=== PATIENT | female | born 1955 | race Caucasian/White ===

== ENCOUNTER 2017-01-09 16:30 | Inpatient (IN) | payer OTHER ==
--- NOTE | ~2017-01-09 | HP ---
Unit #: [id number] #: [id number] Patient: ARDEN LIAO [id number] [address] [place], [place] [address] [id number] MR#: [id number] NAME: ARDEN LIAO ROOM: 89912 Age: 61 Sex: F Admission Date: 01/09/2017 : 1955 Attending Physician: Ivonne Goodwin M.D. Primary Care Physician: No Primary Care Physician HISTORY AND PHYSICAL CHIEF COMPLAINT Shortness of breath, cough, wheezing. DISCUSSION This is a 61-year-old female who has a past history of diabetes, dyslipidemia, anxiety, depression, history of anemia, history of brain aneurysm requiring coiling in 1996, history of herpes zoster with chronic anterior chest wall pain from September 2016, rheumatoid arthritis being on steroids at home and on oxygen. She presented to the emergency room with the chief complaint of having shortness of breath, cough, wheezing. She said her symptoms started one week ago, which got progressively worse. She was unable to breathe. She came to the ER and was found to be in COPD. On blood work she was found to have mildly increased troponin at 0.06, 0.09, and D-dimer was elevated at 61. PE protocol CT scan is negative. Eventually she has been admitted. PAST MEDICAL HISTORY 1. History of COPD, oxygen dependent. 2. History of diabetes. 3. Dyslipidemia. 4. Anxiety and depression. 5. Rheumatoid arthritis on prednisone. 6. History of GERD. 7. History of herpes zoster since September 2016 with anterior chest wall pain. 8. History of brain aneurysm requiring clipping in 1996. PAST SURGICAL HISTORY 1. History of brain aneurysm requiring clipping. 2. ORIF of right forearm. 3. Tubal ligation. SOCIAL HISTORY She used to smoke 1 1/2 packs daily for her whole life. She quit 3 years ago. She denies alcohol. She says she used to drink socially. She is not drinking anymore. Denies other illicit drug use. FAMILY HISTORY Mother - heart attack and had CABG. MEDICATIONS FROM HOME 1. Fosamax 70 mg weekly. 2. Combivent p.r.n. 3. Januvia 100 mg daily. Unit #: [id number] #: [id number] Patient: ARDEN LIAO 4. Lantus 25 units in the morning and 20 in the evening. 5. Aspirin 81 mg daily. 6. Hydrocodone 7.5/325 mg q.6 hours p.r.n. 7. Amitriptyline 25 mg at bedtime. 8. Atorvastatin 10 mg daily. 9. Iron 1 tablet daily. 10. Prednisone 10 mg daily. 11. Zoloft 100 mg daily. 12. Nexium 40 mg daily. 13. Amaryl 4 mg daily. 14. Folic acid 1 mg daily. 15. Leflunomide 20 mg daily. 16. Gabapentin 300 mg t.i.d. REVIEW OF SYSTEMS CONSTITUTIONAL: She denies fever or chills. CARDIOVASCULAR: She complained of chest pain with deep breaths and also anterior chest wall, which she is attributing to her herpes zoster. PULMONARY: She has a cough, wheezing, shortness of breath. Cough is mainly nonproductive. NEUROLOGIC: No headache. No dizziness. ENDOCRINE: Denies any polyuria, polydipsia. SKIN: She has chronic rash to the anterior chest wall and posterior side of abdomen. PHYSICAL EXAMINATION GENERAL: Middle-aged female lying in the bed comfortably. Currently not in any distress. e is alert, awake, oriented x3. CURRENT VITALS: Temperature 99.2, heart rate 124, respiratory rate 30, blood pressure 117/77, oxygen saturation 98% on 4 liters. HEENT: Pupils are equal and reactive to light and accommodation. Head is normocephalic and atraumatic. NECK: Neck is supple. No JVD. HEART: S1, S2. Regular rhythm. Tachycardia. LUNGS: Poor air entry with bilateral rhonchi, wheezing. ABDOMEN: Abdomen is soft, nontender, nondistended. Bowel sounds are positive. EXTREMITIES: Inspection is normal. No cyanosis. No clubbing. No edema. NEUROLOGIC: No focal neurologic deficits. SKIN: Rash is positive to anterior chest wall. DIAGNOSTIC STUDIES LABORATORY WORKUP: Troponin is 0.09. D-dimer is 861. Troponin is 0.06. Sodium is 136, potassium 4.2, chloride 99, glucose 262, BUN 15, creatinine 0.9, AST 30, ALT 27, albumin 3.6. White count 8, hemoglobin 11, hematocrit 36, platelets 67. Flu negative. ABG - pH 7.4, CO2 41, pO2 72. IMAGING: Chest x-ray negative. CT chest PE protocol negative for pulmonary embolism. ASSESSMENT AND PLAN 1. Acute exacerbation of COPD, oxygen dependent. Start the patient on DuoNeb, IV Levaquin, Solu-Medrol 2. Thrombocytopenia. She is a rather poor historian, but she declines history of thrombocytopenia. Will repeat again in the morning. 3. History of anemia. 4. Increased troponin. She attributing chest pain to her herpes zoster, Unit #: [id number] #: [id number] Patient: ARDEN LIAO but I will repeat cardiac enzymes. Mildly elevated. Ask cardiology to evaluate. 5. Abnormal D-dimer. Negative CT chest per PE protocol. 6. Diabetes. 7. Dyslipidemia. 8. History of anxiety and depression. 9. History of rheumatoid arthritis. 10. GERD. 11. Herpes zoster. 12. History of brain aneurysm requiring clipping in the past. 13. DVT prophylaxis. Will place the patient on SCDs. Dictated by Doc Crabtree M.D. Caity TD: 01/10/2017 07:47 JOB #: [id number] HISTORY AND PHYSICAL X X HISTORY AND PHYSICAL
--- NOTE | ~2017-01-09 | EKG ---
PATIENT: ARDEN LIAO UNIT #: [id number] Ventricular Rate: 113 BPM Atrial Rate: 113 BPM P-R Interval: 154 ms QRS Duration: 74 ms Q-T Interval: 340 ms QTC Calculation(Bezet): 466 ms P [place]: 87 degrees Calculated R [place]: 78 degrees Calculated T [place]: 5 degrees Diagnosis Line: Sinus tachycardia Diagnosis Line: ST and T wave abnormality, consider inferior Diagnosis Line: ischemia Diagnosis Line: Abnormal ECG Diagnosis Line: When compared with ECG of 09-JAN-2017 16:43, Diagnosis Line: (unconfirmed) Diagnosis Line: T wave inversion now evident in Inferior leads Diagnosis Line: Confirmed by OCTAVIA SCHAFFER MD ([id number]) on 01/10/2017 Diagnosis Line: 6:05:31 PM INTERPRETING MD: SARBJIT LERMA
--- NOTE | ~2017-01-09 | CO ---
Unit #: [id number] #: [id number] Patient: ARDEN LIAO [id number] [address] [place], [place] [address] [id number] I MR#: [id number] NAME: ARDEN LIAO ROOM: 78155 Age: 61 Sex: F Admission Date: 01/09/2017 : 1955 Attending Physician: Ivonne Goodwin M.D. Primary Care Physician: Primary Care Physician No Consultation Date: 01/10/2017 CONSULTATION REPORT REASON FOR CONSULTATION Elevated serum troponin levels. HISTORY OF PRESENT ILLNESS Ms. White is a 61-year-old white female, who came to the emergency room complaining of cough, shortness of breath, and probable low-grade fever over the last 3 to 4 days. Shortness of breath got so severe that she could not even get out of her bed and was found to be in acute respiratory distress by the time she arrived in the emergency room. The patient is known to have COPD from 80 pack years of cigarette smoking, that she stopped three years ago. Over the last few weeks, the patient has not been able to clean her house, walk from one room to the other without getting short of breath. She denies any contact with persons with influenza. She has suffered from herpes zoster in September 2016 and since then has complained of chest pain localized to the left upper and left lower anterior chest from postherpetic neuralgia. She denies any heaviness, tightness, or pressure-like sensation to suggest angina pectoris, has not had any shoulder or jaw pain, denies any elbow discomfort. She sleeps on one pillow, denies any nocturnal dyspnea, and has occasional ankle edema. There is no history of previous AL, transient ischemic attacks. In 1996, she was diagnosed to have an intracranial bleed secondary to a cerebral aneurysm and was taken to [facility], where she underwent clipping of the aneurysm, that did not leave any residual effects. PAST MEDICAL HISTORY Significant for; 1. Insulin-dependent diabetes mellitus, hypertension, and hyperlipidemia. 2. Anxiety. 3. Right forearm fracture that required open reduction. SOCIAL AND PERSONAL HISTORY She stopped smoking 3 years ago after total smoking history of close to 70 to 80 pack years. She does not abuse alcohol. FAMILY HISTORY Her mother at the age of 72 suffered from coronary artery disease and underwent three-vessel bypass graft surgery. No other member of the family has ischemic heart disease. PHYSICAL EXAMINATION GENERAL: Reveals a middle-aged female, looks older than her stated age, is dyspneic at rest with head end elevated to 30 degrees. Audible Unit #: [id number] #: [id number] Patient: ARDEN LIAO wheezing is noted. VITAL SIGNS: Heart rate is 110 beats per minute. NECK: There is no jugular venous distention. Carotid upstrokes are normal without any bruits. EXTREMITIES: There is no ankle edema. Pedal pulses are absent. CARDIAC: Showed apical impulses palpable in the fifth intercostal space and midclavicular line and is normal, both heart sounds are normal, no rubs or clicks are audible, there is no murmur. CHEST: Normal to palpation and percussion, there are diffuse rhonchi scattered in both lung ruvalcaba with markedly diminished breath sounds in both lung ruvalcaba. ABDOMEN: Shows soft and nontender anterior abdominal wall. There are no masses or organomegaly. RECTAL: Not done. FREIGHT ELEVATOR OPERATOR: Within normal limits. DIAGNOSTIC STUDIES CARDIOVASCULAR STUDIES: EKG done at that time of admission shows normal sinus rhythm, nonspecific ST-segment changes, no ischemic abnormalities are noted with poor R-wave progression in V1, V2, most likely related to COPD. LABORATORY RESULTS: Cardiac enzymes at the time of admission were normal. Early this morning, troponin elevation to 0.34 ng/dL is noted. Repeat electrocardiogram is awaited. Hemoglobin is 10.9, hematocrit 34.2 with a platelet count of 72,000, etiology of which is uncertain. White count is only 5200. IMAGING STUDIES: Chest x-ray shows normal size heart, increased interstitial lung markings secondary to COPD, and probable pulmonary fibrosis. DIAGNOSES 1. Acute bronchitis. 2. Severe chronic obstructive pulmonary disease. 3. Thrombocytopenia and anemia, etiology undetermined. 4. Mild elevation of serum troponin levels, cannot rule out acute coronary event though unlikely. 5. Insulin-dependent diabetes mellitus. 6. Hyperlipidemia. 7. Hypertension. 8. Status post coil clipping of intracerebral aneurysm in 1996. 9. Anxiety. PLAN 1. The patient will be continued on antibiotics and steroids already ordered along with nebulizer treatments. 2. From a cardiac standpoint, troponin levels will be monitored. It is unlikely that this represents an acute myocardial infarction, elevated serum troponin may be secondary to increased planned demand equation. In view of significant thrombocytopenia, I will withhold dual antiplatelet therapy or full anticoagulation dose with heparin unless troponins and EKGs show significant abnormalities. I will follow the patient with you. Thank you very much for associating us in the care of Ms. White. Dictated by... Aureliano Carnes M.D. Unit #: [id number] #: [id number] Patient: ARDEN LIAO LUC/anibal TD: 01/10/2017 12:08 JOB #: [id number] CONSULTATION REPORT X Aureliano Carnes MD X CONSULTATION REPORT
--- NOTE | ~2017-01-09 | DS ---
Unit #: [id number] #: [id number] Patient: ARDEN LIAO [id number] [address] [place], [place] [address] [id number] I MR#: [id number] NAME: ARDEN LIAO ROOM: 309 Age: 61 Sex: F Admission Date: 01/09/2017 : 1955 Discharge Date: 01/13/2017 Attending Physician: Christopher Connelly M.D. Primary Care Physician: No Primary Care Physician DISCHARGE SUMMARY DISCHARGE DIAGNOSES 1. Acute chronic obstructive pulmonary disease exacerbation. Will be discharged on tapered course of steroid back down to her prednisone 10 mg orally daily. 2. Non-ST elevation myocardial infarction versus elevated troponin non-ST elevation myocardial infarction versus cardiac demand from acute chronic obstructive pulmonary disease exacerbation. Troponin peaked at 0.39. 3. Thrombocytopenia. 4. Chronic anemia. Stable hemoglobin and hematocrit. No overt signs of bleeding. 5. Elevated D-dimer. No pulmonary embolism. Likely due to the patient's longstanding chronic obstructive pulmonary disease. 6. Uncontrolled type 2 diabetes. A1C is 9.6. 7. Dyslipidemia, on statin therapy. 8. History of anxiety and depression. No homicidal or suicidal ideation. 9. History of rheumatoid arthritis, on chronic steroid, prednisone 10 mg orally daily. 10. Gastroesophageal reflux disease, on proton pump inhibitor. 11. Herpes zoster, mainly over the anterior chest, originally diagnosed in September. Has completed a course of antiviral. 12. Remote history of brain aneurysm status post clipping, stable. 13. Acute tracheobronchitis. 14. Depressed thyroid-stimulating hormone with normal free T3 and T4. Could be due to acute illness. Recommend followup with repeat thyroid-stimulating hormone and free T4 within 4-[address] 1[address]. Allen of cardiology. 2. Dr. Emilie Meraz of pulmonary. PROCEDURES None. DIAGNOSTIC STUDIES IMAGING: Chest CT on 01/09/17. Findings - Redemonstrated findings of COPD and old granulomatous disease. No infiltrate, effusion, pneumothorax or suspicious nodule. No interval change. No acute findings. CT angiogram of chest on 01/09/17. Impression - No CT evidence of pulmonary embolus or aortic dissection. No active disease. LABS: On the day of discharge the patient's labs include BMP with glucose of 82, BUN 33, creatinine 0.8, sodium 144, potassium 4.6, chloride 104, Unit #: [id number] #: [id number] Patient: ARDEN LIAO CO2 31, calcium 8.6, magnesium 2.2, total protein 6.2, albumin 3.1, total bilirubin is 0.6. CBC with WBC of 8.7, RBC 4.9, hemoglobin 12.5, hematocrit 39.4, MCV 80.5, MCH 25.5, MCHC 31.7, RDW 14.8, platelets 116, MPV 8.3. HOSPITAL COURSE The patient is a 61-year-old female with past medical history of type 2 diabetes, dyslipidemia, anxiety, depression, history of anemia, history of brain aneurysm requiring coiling in 1996, history of herpes zoster with chronic anterior chest wall pain and crusting since September 2016, rheumatoid arthritis - chronic and on steroid prednisone 10 mg orally daily, chronically on oxygen. She presented to the emergency department with complaints of shortness of breath, cough and wheezing. She stated that her symptoms started one week ago, which had gotten progressively worse. She was unable to breathe. She came to the emergency department and was found to have COPD exacerbation. Blood work revealed that she had mildly increased troponin of 0.06 and 0.09. D-dimer was elevated at 61. CT scan of the chest per PE protocol was negative. She was admitted for acute COPD exacerbation and treatment for acute tracheobronchitis. As far as her elevated troponin, it had peaked at 0.39. Cardiology was consulted who felt it was best that the patient did have her elevated troponin assessed, as this may be elevated troponin due to NSTEMI versus detectable due to acute COPD exacerbation. Due to the patient's chronic COPD, it was worrisome that the patient would not be able to tolerate anesthesia. Therefore, at this time, deferring left heart catheterization and will defer this to a later date once her COPD is more stable. With regard to her COPD exacerbation, she chronically at baseline is dyspneic with exertion, and at this time, with much usage of IV steroid, she feels that she is back to her normal baseline and she is back to using oxygen via nasal cannula 2 liters a minute. Her last oxygen saturation assessment reveals it to be 98% on 2 liters. Therefore, she is back to her chronic endstage COPD. Due to her poor COPD overall and questionable stability, PT/OT was asked to see the patient in consultation. The patient actually did fairly well. She was able to ambulate for 200 feet with a rolling walker on her chronic oxygen usage. There was some gait instability, and physical therapy did recommend subacute rehab prior to home for stability. The patient was offered this, but she tells me over and over again that she does not want to go to rehab and she would like to go home where she has her daughter and her boyfriend to help. I have offered the patient the possibility of doing outpatient physical and occupational therapy rehab at our wellness center given her acute COPD exacerbation and our desire to improve her lung function in preparation for left heart cath with Dr. Allen, but she tells me that this cannot be arranged as she does not have a ride and she does not drive. Her daughter and her boyfriend work all day and would not be able to help with this. Therefore, I am setting up [facility] home health to get physical and occupational therapy out there. DISCHARGE CONDITION Stable. DISCHARGE DISPOSITION To home with her daughter and her boyfriend. DISCHARGE DIET Unit #: [id number] #: [id number] Patient: ARDEN LIAO Heart healthy with [place] recommended consistent carb diet. ACTIVITIES Resume activities as prior to hospitalization with ambulating every day as tolerated. DISCHARGE MEDICATIONS 1. Combivent inhaled q.i.d. as needed for shortness of breath. 2. Prednisone. I will be tapering her prednisone from 40 mg orally for 3 days, then 30 mg orally for 3 days, then 20 mg orally for 3 days, then back to her 10 mg orally chronically. 3. Gabapentin 300 mg orally t.i.d. 4. Amitriptyline 25 mg orally at bedtime. 5. Sertraline 100 mg orally daily. 6. Januvia 100 mg orally daily. 7. Metoprolol XL 25 mg orally daily. 8. Guaifenesin 200 mg orally t.i.d. as needed for cough. 9. Atorvastatin 40 mg orally at bedtime. 10. Patient was using Lantus and currently will be discharging her with Lantus 28 units subcutaneously b.i.d. 11. NovoLog 5 units with meals plus low-dose sliding scale with meals and prior to bedtime. 12. Iron supplement 1 tablet orally daily. 13. Fosamax 70 mg orally weekly. 14. Leflunomide 20 mg orally daily. 15. Aspirin 81 mg orally daily. 16. Hydrocodone with acetaminophen 7.5/325 mg 1 tablet q.6 hours as needed for pain. 17. Nexium 40 mg orally daily. 18. Amaryl 4 mg orally daily. 19. Doxycycline 100 mg orally b.i.d. for the next 3 days. 20. Folic acid 1 gram orally daily. 21. Plavix 75 mg orally daily. NOTE: This dictation took 40 minutes, including coordinating care and patient education. Dictated by... Lj Lott PA-C for Corey Hernandez/lore TD: 01/14/2017 12:35 JOB #: [id number] DISCHARGE SUMMARY X X DISCHARGE SUMMARY
--- NOTE | ~2017-01-09 | EKG ---
PATIENT: ARDEN LIAO UNIT #: [id number] Ventricular Rate: 129 BPM Atrial Rate: 129 BPM P-R Interval: 138 ms QRS Duration: 72 ms Q-T Interval: 294 ms QTC Calculation(Bezet): 430 ms P [place]: 77 degrees Calculated R [place]: 64 degrees Calculated T [place]: 69 degrees Diagnosis Line: Sinus tachycardia Diagnosis Line: Nonspecific ST abnormality Diagnosis Line: Abnormal ECG Diagnosis Line: No previous ECGs available Diagnosis Line: Confirmed by DEREK JOHANSEN MD ([id number]) on Diagnosis Line: 01/13/2017 3:55:41 PM INTERPRETING MD: ELENO LERMA
--- NOTE | ~2017-01-09 | A ---
[facility] Nutrition Therapy DATE: 01/12/17 Patient: ARDEN LIAO Physician: KEVIN Address: [address] Room/Bed: [address] [place] [address], Zip: [place] [phone] Admit Date: 01/09/17 Date of : 55 Height: 4 11 Weight: 88 40.2 NUTRITIONAL ASSESSMENT: REASON: 3 POINTS NUTRITION SCREEN RISK RE: 5# WEIGHT LOSS AND EATING POORLY 61 YO FEMALE ADMITTED FOR COPD, SOB PMH: DM, COPD, DYSLIPIDEMIA, ANXIETY, DEPRESSION, ANEMIA, BRAIN ANEURYSM, GERD, RA Anthropometrics: HT: 4'11" WT: 40.2 KG BMI: 17.9 IBW: 44.5 KG, 90% IBW Labs: Cl- 97 Gluc 224 BUN 37 Accuchecks 181-420 HgbA1C 9.6 GFR 59.9 Meds: Folic acid, ferrous gluconate, novolog, lipitor, protonix, MgS04, KCl, zofran, levemir, levaquin, solu-medrol I/O & Bowel function: 980/1250, last BM 01/12 Skin Integrity: Scab/ wound mid chest Edema: none noted Estimated Nutrition Needs: Increased due to low body weight Diet: Consistent carbohydrate Assessment: Chart reviewed, events noted. RD spoke with the pt at bedside. Pt was up in the chair. Pt reports having a fair appetite and intake due to SOB. RD discussed the importance of adequate nutrition and weight gain/ maintenance with the pt. Pt voiced understanding, and is agreeable to Glucerna supplements. RD also suggested smaller, more frequent meals an the pt agreed, reporting that she snacks frequently at home. RD discussed high calorie/ high protein snack options with the pt, as well as glucose control. RD will order glucerna supplements. Pt reports ~2-5# weight loss recently, and gradual weight loss over the past couple of years. Dx: Increased nutrient needs RT early satiety, decreased appetite AEB BMI 17.9, recent weight loss of 2-5#, 90% IBW. Intervention: 1. CC diet 2. Glucerna TID Monitoring, Evaluation and Goals: 1. Oral intake; tolerate >50-75% of meals and supplements [facility] Nutrition Therapy DATE: 01/12/17 Patient: ARDEN LIAO Physician: KEVIN Address: [address] [facility] Room/Bed: [address] [place] [address], Zip: [place] [address] Admit Date: 01/09/17 Date of : 55 Height: 4 11 Weight: 88 40.2 2. Labs; WNL 3. Weight; prevent loss of LBM, promote weight gain 4. Skin; prevent breakdown Recommendations: 1. Continue consistent carbohydrate diet as tolerated. 2. Glucerna supplements TID with meals for supplemental nutrition. Pt is at mild-moderate nutritional risk. RD will follow hospital course. Respectfully, MARK HOYOS RD, LD [employer] [facility] cc: client file
--- NOTE | ~2017-01-09 | CO ---
Unit #: [id number] #: [id number] Patient: ARDEN LIAO [id number] [address] [address] [id number] I MR#: [id number] NAME: ARDEN LIAO ROOM: 309 Age: 61 Sex: F Admission Date: 01/09/2017 : 1955 Attending Physician: Ivonne Goodwin M.D. Primary Care Physician: No Primary Care Physician Consultation Date: 01/11/2017 CONSULTATION REPORT REASON FOR CONSULT COPD management. HISTORY OF PRESENT ILLNESS This is a very pleasant 61-year-old female with a past medical history significant for extensive smoking who quit seven years ago, diabetes, hypertension, hyperlipidemia, depression and brain aneurysm requiring coiling in 1996, who presented to the emergency room with severe shortness of breath, respiratory distress, coughing and wheezing for the last week or so. Her symptoms were progressing over the last few days. The patient is chronically on oxygen. She is on also inhalers at home but she is not very compliant, per daughter. The patient denies any nausea, vomiting or diarrhea. The patient is able to ambulate at home and maintain her daily activities. PAST MEDICAL HISTORY 1. COPD, oxygen dependent. 2. Diabetes. 3. Hyperlipidemia. 4. Depression. 5. Rheumatoid arthritis. 6. GERD. 7. Herpes zoster. 8. Brain aneurysm. PAST SURGICAL HISTORY 1. Brain aneurysm requiring clipping. 2. ORIF of right forearm. 3. Tubal ligation. SOCIAL HISTORY The patient used to smoke up to one and a half packs per day for most of her life since she was a teenager but she quit seven years ago. No history of alcohol or drug abuse. FAMILY HISTORY Coronary artery disease. HOME MEDICATIONS 1. Fosamax. 2. Combivent. Unit #: [id number] #: [id number] Patient: ARDEN LIAO 3. Januvia. 4. Lantus. 5. Aspirin. 6. Hydrocodone. 7. Amitriptyline. 8. Prednisone. 9. Zoloft. 10. Amaryl. 11. Nexium. 12. Neurontin. REVIEW OF SYSTEMS Twelve point review of systems were obtained and were negative except for what was mentioned in the HPI. PHYSICAL EXAMINATION GENERAL: The patient is in acute distress. VITAL SIGNS: Blood pressure 115/64, O2 saturation 98% on 4 L nasal cannula. HEENT: Atraumatic, normocephalic. PERRLA, EOMI. NECK: Supple. No JVD, no lymphadenopathy. CHEST: Decreased breath sounds bilaterally with diffuse wheezing and rhonchi. HEART: S1, S2. No murmur, gallops or rubs. ABDOMEN: Soft, nontender. Bowel sounds positive. No hepatosplenomegaly. EXTREMITIES: No edema or cyanosis. SKIN: The patient has old healing herpes zoster lesions on the upper torso. ENERGY ASSISTANT: The patient is awake, alert, oriented x3. No focal motor/sensory deficits. DIAGNOSTIC STUDIES LABORATORY: Creatinine 0.9, sodium 133, potassium 4.6, white blood count 8.0. IMAGING: Chest x-ray not consistent with any acute infiltrate. ASSESSMENT 1. Acute on chronic hypoxic respiratory failure. 2. Acute exacerbation of chronic obstructive pulmonary disease. 3. Rheumatoid arthritis, on prednisone and immunosuppressive. 4. Malnutrition. 5. Herpes zoster. 6. Diabetes. PLAN 1. Patient is ill-appearing with respiratory distress. 2. Will start patient on aggressive pulmonary toilet including vest therapy, hypertonic saline. 3. Bronchodilator, mucolytics and antibiotics. 4. Alpha-I antitrypsin screening as an outpatient. 5. PFCs as an outpatient. 6. Patient would benefit from pulmonary rehab. Unit #: [id number] #: [id number] Patient: ARDEN LIAO Dictated by... Corey Brandon TD: 01/12/2017 06:02 JOB #: [id number] CONSULTATION REPORT X HAYES PAYAN MD X CONSULTATION REPORT
--- NOTE | ~2017-01-09 | EKG ---
PATIENT: ARDEN LIAO UNIT #: [id number] Ventricular Rate: 91 BPM Atrial Rate: 91 BPM P-R Interval: 152 ms QRS Duration: 82 ms Q-T Interval: 370 ms QTC Calculation(Bezet): 455 ms P [place]: 79 degrees Calculated R [place]: 74 degrees Calculated T [place]: -9 degrees Diagnosis Line: Normal sinus rhythm Diagnosis Line: ST and T wave abnormality, consider inferior Diagnosis Line: ischemia Diagnosis Line: Inferior infarct , age undetermined Diagnosis Line: Abnormal ECG Diagnosis Line: When compared with ECG of 11-JAN-2017 16:54, Diagnosis Line: (unconfirmed) Diagnosis Line: No significant change was found Diagnosis Line: Confirmed by OCTAVIA SCHAFFER MD ([id number]) on 01/12/2017 Diagnosis Line: 7:32:36 PM INTERPRETING MD: SARBJIT LERMA
--- NOTE | ~2017-01-09 | EKG ---
PATIENT: ARDEN LIAO UNIT #: [id number] Ventricular Rate: 85 BPM Atrial Rate: 85 BPM P-R Interval: 150 ms QRS Duration: 74 ms Q-T Interval: 404 ms QTC Calculation(Bezet): 480 ms P [place]: 83 degrees Calculated R [place]: 66 degrees Calculated T [place]: -36 degrees Diagnosis Line: Normal sinus rhythm Diagnosis Line: T wave abnormality, consider inferior ischemia Diagnosis Line: Abnormal ECG Diagnosis Line: When compared with ECG of 10-JAN-2017 08:53, Diagnosis Line: ST no longer depressed in Lateral leads Diagnosis Line: Nonspecific T wave abnormality no longer evident Diagnosis Line: in Lateral leads Diagnosis Line: Confirmed by DEREK JOHANSEN MD ([id number]) on Diagnosis Line: 01/13/2017 4:04:32 PM INTERPRETING MD: ELENO LERMA
--- NOTE | ~2017-01-09 | CR72 ---
[facility] A Service of [facility] RADIOLOGY TEXT RESULTS PATIENT: ARDEN LIAO LOCATION: [facility] 309-01 : 55 UNIT #: [id number] AGE: [address]: Christopher Connelly MD SEX: F ORDER DR: [id number] [facility] [address] [facility] [place], [place] [address] [id number] I MR#: [id number] Acc #: [id number] NAME: ARDEN LIAO : 1955 SEX: F STUDY DATE/TIME: 01/09/2017 17:05 UNIT: [facility] ROOM: [facility] STUDY DESCRIPTION: CR Chest Single View Portable Attending Physician: Ivonne Goodwin M.D. Ordering Physician: Ed Doctor [id number] [facility] Primary Care Physician: Primary Care Physician No MEDICAL IMAGING REPORT This report is preliminary unless electronic signature is present EXAM Portable chest 1 view, 01/09/2017 COMPARISON 10/05/2016 HISTORY Short of air for 2 days. FINDINGS Redemonstrated findings of COPD and old granulomatous disease. No infiltrate, effusion, pneumothorax or suspicious nodule. No interval change. No acute findings. Dictated by... Aldair Crews M.D. THIS IS AN ELECTRONICALLY VERIFIED REPORT Aldair Crews M.D. at 01/12/2017 4:32 PM BUSHRA/vasile TD: 01/10/2017 10:07 JOB #: [id number] MEDICAL IMAGING REPORT COPY
--- NOTE | ~2017-01-09 | EKG ---
PATIENT: ARDEN LIAO UNIT #: [id number] Ventricular Rate: 85 BPM Atrial Rate: 85 BPM P-R Interval: 140 ms QRS Duration: 74 ms Q-T Interval: 366 ms QTC Calculation(Bezet): 435 ms P [place]: 83 degrees Calculated R [place]: 70 degrees Calculated T [place]: 2 degrees Diagnosis Line: Normal sinus rhythm Diagnosis Line: Inferior infarct Diagnosis Line: Abnormal ECG Diagnosis Line: When compared with ECG of 12-JAN-2017 05:47, Diagnosis Line: No significant change was found Diagnosis Line: Confirmed by OCTAVIA SCHAFFER MD ([id number]) on 01/14/2017 Diagnosis Line: 7:15:41 AM INTERPRETING MD: SARBJIT LERMA
--- NOTE | ~2017-01-09 | CT16 ---
[facility] A Service of [facility] RADIOLOGY TEXT RESULTS PATIENT: ARDEN LIAO LOCATION: [facility] : 55 UNIT #: [id number] AGE: [address]: Ivonne Goodwin MD SEX: F ORDER DR: [id number] [place] [id number] [facility]. [place], [place] [address] [id number] I MR#: [id number] #: [id number] NAME: ARDEN LIAO : 1955 SEX: F STUDY DATE/TIME: 01/09/2017 20:48 UNIT: [facility] ROOM: [address]06[address] STUDY DESCRIPTION: CT Angio Chest for PE Attending Physician: Ivonne Goodwin M.D. Ordering Physician: Ed Doctor [id number] [facility] Primary Care Physician: Primary Care Physician No MEDICAL IMAGING REPORT This report is preliminary unless electronic signature is present EXAM CT scan of the chest with pulmonary embolus protocol HISTORY Shortness of air and dyspnea for 1 day with elevated D-dimer. COMPARISON Chest x-ray from same day TECHNIQUE The patient was given 80 mL of Isovue-370 and spiral imaging was performed through the chest. This CT exam was performed with one or more of the following radiation dose reduction techniques: automatic exposure control, adjustment of mA and/or kV according to patient size, and iterative reconstruction. FINDINGS There are multiple calcified granulomas. No noncalcified nodules are identified. The lungs are clear. The thyroid gland is normal. The aorta is normal in size and there is no dissection. The pulmonary arteries are optimally opacified and there is no CT evidence of pulmonary embolus. The visualized portions of the upper abdomen are normal. The bones are unremarkable. IMPRESSION No CT evidence of pulmonary embolus or aortic dissection. No active disease. Dictated by... Deep Mejia M.D. [facility] A Service [facility] RADIOLOGY TEXT RESULTS PATIENT: ARDEN LIAO LOCATION: [facility] : 55 UNIT #: [id number] AGE: [address]: Ivonne Goodwin MD SEX: F ORDER DR: THIS IS AN ELECTRONICALLY VERIFIED REPORT Deep Mejia M.D. at 01/10/2017 4:32 PM [place] TD: 01/10/2017 15:10 JOB #: [id number] MEDICAL IMAGING REPORT COPY
[~2017-01-09 16:30] MED LIST: ADVAIR 100-501 EACH; AMARYL PO; ARAVA10 MG; ASPIRIN EC81 M1; AZITHROMYCIN PO; COMBIVENT RESPIM4 GM; FAMVIR PO; FOLIC ACID1 MG; FOSAMAX70 MG; GUAIFENESIN200 M1; IPRATROPIUM0.2 MG/ML; JANUVIA100 MG; LANTUS SOLOSTAR3 ML; LATANOPROST2.5 ML; LIPITOR PO; NEURONTIN300 MG; NEXIUM; PREDNISONE10 MG; PURALUBE OPHTHAL1 GM; REFRESH OPTIVE10 M1; SERTRALINE HCL100 M1
[2017-01-09 17:29] LABS: ARTERIAL BLD GAS O2 SATURATION 92.8 % (90.0-100.0); ARTERIAL BLOOD GAS HCO3 25.7 mmol/L; ARTERIAL BLOOD GAS MET HB 0.6 %sat (0.0-2.0); ARTERIAL BLOOD GAS pH 7.406 (7.350-7.450)
[2017-01-09 17:31] LABS: ARTERIAL BLOOD GAS ALLEN TEST NORMAL; ARTERIAL BLOOD GAS ART SITE RIGHT RADIAL; ARTERIAL BLOOD GAS DELIVERY NASAL CANNULA; ARTERIAL BLOOD GAS LITER FLOW 2.5; ARTERIAL BLOOD GAS PO2 72.8 mmHg (80.0-100); ARTERIAL DRAW? YES
[2017-01-09 17:43] LABS: INFLUENZA A NEG (NEG); INFLUENZA B NEG (NEG)
[2017-01-09 18:04] LABS: BASOPHIL% 0.3 % (0-2.5); EOSINOPHIL% 0.6 % (0.0-7.0); HEMATOCRIT 36.3 % (35.0-45.0); HEMOGLOBIN 11.9 gm/dL (12.0-16.0); LYMPHOCYTE# 0.3 X10e3 (1.0-3.5); LYMPHOCYTE% 4.3 % (17.0-45.0); MEAN CELL VOLUME 80.7 FL (83-96); MEAN CORPUSCULAR HEMOGLOBIN 26.3 PG (28-34); MEAN CORPUSCULAR HGB CONC 32.6 g/dL (30-36); MONOCYTE# 0.3 X10e3 (0-1.0); MONOCYTE% 4.3 % (3.0-12.0); NEUTROPHIL# 7.2 X10e3 (1.5-7.1); NEUTROPHIL% 90.5 % (40-75); RED CELL DISTRIBUTION WIDTH 15.5 % (11.0-15.5)
[2017-01-09 18:16] LABS: ALBUMIN SERUM 3.7 g/dL (3.5-5.0); ALKALINE PHOSPHATASE 74 U/L (32-92); ALT (SGPT) 27 U/L (10-40); AST (SGOT) 30 U/L (10-42); BILIRUBIN, DIRECT 0.2 mg/dL (0.0-0.2); BILIRUBIN,INDIRECT 0.6 mg/dL (0.0-0.9); BILIRUBIN,TOTAL 0.8 mg/dL (0.2-2.0); BLOOD UREA NITROGEN 15 mg/dL (9-23); BUN/CREATININE RATIO 16.66; CALCIUM SERUM 8.2 mg/dL (8.4-10.2); CARBON DIOXIDE 28 mmol/L (22-31); CHLORIDE 99 mmol/L (100-111); CREATININE SERUM 0.9 mg/dL (0.6-1.4); GLOM FILT RATE Estimated ABOVE60 mL/min (>60); GLUCOSE FASTING 262 mg/dL (70-110); POTASSIUM 4.2 mmol/L (3.5-5.1); PROTEIN TOTAL SERUM 6.7 g/dL (6.0-8.3); SODIUM 136 mmol/L (135-145)
[2017-01-09 18:19] LABS: DIFF IND NO; PLATELET COUNT 67 X10e3 (140-420)
[2017-01-09 18:20] LABS: POC - CKMB 1.5 ng/mL (0.0-7.9); POC - TROPONIN 0.06 ng/mL (<=0.05)
[2017-01-09 20:05] LABS: POC - CKMB 2.1 ng/mL (0.0-7.9); POC - TROPONIN 0.09 ng/mL (<=0.05)
[2017-01-09] MEDS ORDERED: NEXIUM PO (21:25)
[2017-01-09] MEDS ORDERED: AMARYL PO (21:25)
[2017-01-09] MEDS ORDERED: FOLIC ACID1 MG PO (21:26)
[2017-01-09] MEDS ORDERED: LEFLUNOMIDE10 MG PO (21:26)
[2017-01-09] MEDS ORDERED: ATORVASTATIN CA10 MG PO (21:27)
[2017-01-09] MEDS ORDERED: GABAPENTIN300 M2 PO (21:27)
[2017-01-09] MEDS ORDERED: AMITRIPTYLINE H25 MG PO (21:27)
[2017-01-09] MEDS ORDERED: IRON325 ( 651 PO (21:28)
[2017-01-09] MEDS ORDERED: JANUVIA PO (21:29)
[2017-01-09] MEDS ORDERED: PREDNISONE10 MG PO (21:29)
[2017-01-09] MEDS ORDERED: SERTRALINE HCL100 M1 PO (21:29)
[2017-01-09] MEDS ORDERED: COUGHTAB200 MG PO (21:33)
[2017-01-09] MEDS ORDERED: LANTUS SOLOSTAR3 ML SUBQ (21:34)
[2017-01-09] MEDS ORDERED: ASPIRIN EC81 M1 PO (21:34)
[2017-01-09] MEDS ORDERED: HYDROCODONE/APA1 T16 PO (21:35)
[2017-01-09] MEDS ORDERED: FOSAMAX70 MG PO (21:35)
[2017-01-09] MEDS ORDERED: COMBIVENT RESPIM4 GM INH (21:36)
[2017-01-10 04:44] LABS: BASOPHIL% 0.1 % (0-2.5); EOSINOPHIL% 0.1 % (0.0-7.0); HEMATOCRIT 34.2 % (35.0-45.0); HEMOGLOBIN 10.9 gm/dL (12.0-16.0); LYMPHOCYTE# 0.4 X10e3 (1.0-3.5); LYMPHOCYTE% 7.8 % (17.0-45.0); MEAN CELL VOLUME 80.7 FL (83-96); MEAN CORPUSCULAR HEMOGLOBIN 25.8 PG (28-34); MEAN PLATELET VOLUME 8.5 FL (6.5-11.5); MONOCYTE# 0.1 X10e3 (0-1.0); MONOCYTE% 2.9 % (3.0-12.0); NEUTROPHIL# 4.6 X10e3 (1.5-7.1); NEUTROPHIL% 89.1 % (40-75); PLATELET COUNT 72 X10e3 (140-420); RED BLOOD COUNT 4.24 X10e (3.90-5.30); RED CELL DISTRIBUTION WIDTH 15.3 % (11.0-15.5); WHITE BLOOD COUNT 5.2 X10e3 (4.0-10.5)
[2017-01-10 04:46] LABS: DIFF IND YES
[2017-01-10 05:00] LABS: ALBUMIN SERUM 3.1 g/dL (3.5-5.0); ALKALINE PHOSPHATASE 67 U/L (32-92); ALT (SGPT) 26 U/L (10-40); AST (SGOT) 35 U/L (10-42); BILIRUBIN,TOTAL 0.6 mg/dL (0.2-2.0); BLOOD UREA NITROGEN 22 mg/dL (9-23); BUN/CREATININE RATIO 24.44; CALCIUM SERUM 7.6 mg/dL (8.4-10.2); CARBON DIOXIDE 23 mmol/L (22-31); CHLORIDE 102 mmol/L (100-111); CPK (CREATINE PHOSPHOKINASE) 79 IU/L (26-140); CREATININE SERUM 0.9 mg/dL (0.6-1.4); GLOM FILT RATE Estimated ABOVE60 mL/min (>60); GLUCOSE FASTING 294 mg/dL (70-110); POTASSIUM 4.4 mmol/L (3.5-5.1); PROTEIN TOTAL SERUM 6.2 g/dL (6.0-8.3); SODIUM 134 mmol/L (135-145)
[2017-01-10 05:02] LABS: PLATELET ESTIMATE DECREASED (NORMAL)
[2017-01-10 20:21] LABS: %MB 7.1 % (0.0-4.0); MB 8.4 ng/ml
[2017-01-10 23:55] LABS: %MB 7.1 % (0.0-4.0); MB 8.5 ng/ml
[2017-01-11 10:48] LABS: BASOPHIL% 0.1 % (0-2.5); HEMATOCRIT 37.6 % (35.0-45.0); HEMOGLOBIN 12.3 gm/dL (12.0-16.0); LYMPHOCYTE# 0.4 X10e3 (1.0-3.5); LYMPHOCYTE% 5.3 % (17.0-45.0); MEAN CELL VOLUME 79.9 FL (83-96); MEAN CORPUSCULAR HEMOGLOBIN 26.1 PG (28-34); MEAN CORPUSCULAR HGB CONC 32.7 g/dL (30-36); MEAN PLATELET VOLUME 8.4 FL (6.5-11.5); MONOCYTE# 0.4 X10e3 (0-1.0); MONOCYTE% 4.5 % (3.0-12.0); NEUTROPHIL# 7.6 X10e3 (1.5-7.1); NEUTROPHIL% 90.1 % (40-75); RED CELL DISTRIBUTION WIDTH 15.1 % (11.0-15.5)
[2017-01-11 10:49] LABS: DIFF IND NO; PLATELET COUNT 97 X10e3 (140-420); WHITE BLOOD COUNT 8.4 X10e3 (4.0-10.5)
[2017-01-11 11:19] LABS: BLOOD UREA NITROGEN 39 mg/dL (9-23); BUN/CREATININE RATIO 43.33; CALCIUM SERUM 8.1 mg/dL (8.4-10.2); CARBON DIOXIDE 31 mmol/L (22-31); CHLORIDE 99 mmol/L (100-111); CREATININE SERUM 0.9 mg/dL (0.6-1.4); GLOM FILT RATE Estimated ABOVE60 mL/min (>60); GLUCOSE FASTING 191 mg/dL (70-110); MAGNESIUM 2.4 mg/dL (1.6-3.0); POTASSIUM 4.6 mmol/L (3.5-5.1); SODIUM 133 mmol/L (135-145)
[2017-01-11 11:27] LABS: CHOLESTEROL 189 mg/dL (0-200); HDL CHOLESTEROL 83 mg/dL (35-95); LDL CHOLESTEROL 83 mg/dL (-130); LDL/HDL RATIO 1 RATIO (0-4); TRIGLYCERIDES 113 mg/dL (10-160)
[2017-01-12 07:15] LABS: HEMATOCRIT 37.3 % (35.0-45.0); HEMOGLOBIN 11.9 gm/dL (12.0-16.0); LYMPHOCYTE# 0.5 X10e3 (1.0-3.5); LYMPHOCYTE% 6.2 % (17.0-45.0); MEAN CELL VOLUME 80.1 FL (83-96); MEAN CORPUSCULAR HEMOGLOBIN 25.6 PG (28-34); MEAN PLATELET VOLUME 8.4 FL (6.5-11.5); MONOCYTE# 0.3 X10e3 (0-1.0); MONOCYTE% 4.2 % (3.0-12.0); NEUTROPHIL# 6.8 X10e3 (1.5-7.1); NEUTROPHIL% 89.6 % (40-75); PLATELET COUNT 109 X10e3 (140-420); RED BLOOD COUNT 4.65 X10e (3.90-5.30); WHITE BLOOD COUNT 7.6 X10e3 (4.0-10.5)
[2017-01-12 07:19] LABS: DIFF IND NO
[2017-01-12 07:21] LABS: CALCIUM SERUM 8.5 mg/dL (8.4-10.2); GLOM FILT RATE Estimated 59.9 mL/min (>60); MAGNESIUM 2.3 mg/dL (1.6-3.0)
[2017-01-12 09:23] LABS: FREE T3 2.8 pg/mL (2.5-3.9)
[2017-01-12 09:25] LABS: FREE THYROXIN (T4) 0.87 ng/dL (0.58-1.64)
[2017-01-13 05:47] LABS: HEMATOCRIT 39.4 % (35.0-45.0); HEMOGLOBIN 12.5 gm/dL (12.0-16.0); MEAN CELL VOLUME 80.5 FL (83-96); MEAN CORPUSCULAR HEMOGLOBIN 25.5 PG (28-34); MEAN CORPUSCULAR HGB CONC 31.7 g/dL (30-36); MEAN PLATELET VOLUME 8.3 FL (6.5-11.5); RED BLOOD COUNT 4.9 X10e (3.90-5.30); RED CELL DISTRIBUTION WIDTH 14.8 % (11.0-15.5); WHITE BLOOD COUNT 8.7 X10e3 (4.0-10.5)
[2017-01-13 06:45] LABS: BLOOD UREA NITROGEN 33 mg/dL (9-23); BUN/CREATININE RATIO 41.25; CALCIUM SERUM 8.6 mg/dL (8.4-10.2); CARBON DIOXIDE 31 mmol/L (22-31); CHLORIDE 104 mmol/L (100-111); CREATININE SERUM 0.8 mg/dL (0.6-1.4); GLOM FILT RATE Estimated ABOVE60 mL/min (>60); GLUCOSE FASTING 82 mg/dL (70-110); MAGNESIUM 2.2 mg/dL (1.6-3.0); POTASSIUM 4.6 mmol/L (3.5-5.1); SODIUM 144 mmol/L (135-145)
[2017-01-13] MEDS ORDERED: TOPROL XL PO (12:25)
[2017-01-13] MEDS ORDERED: HUMALOG100 U/ML SUBQ ×2 (12:27)
[2017-01-13] MEDS ORDERED: DOXYCYCLINE HY100 M3 PO (12:28)
[2017-01-13] MEDS ORDERED: CLOPIDOGREL75 MG PO (12:28)
== END 2017-01-13 17:51 | disposition home health service (06) | DRG 189 ==
LOC: CED 16:30 → CEDOF 22:00 → C3A PCU 01-11 14:10
PROVIDERS: Emergency Medicine; Family Medicine; Internal Medicine; Internal Medicine Cardiovascular Disease
PROC: B32TYZZ Computerized Tomography (CT Scan) of Left Pulmonary Artery using Other Contrast (ICD-10-PCS; principal; 2017-01-09)
PROC: B32SYZZ Computerized Tomography (CT Scan) of Right Pulmonary Artery using Other Contrast (ICD-10-PCS; 2017-01-09)
DX: J96.21 Acute and chronic respiratory failure with hypoxia (principal); I21.4 Non-ST elevation (NSTEMI) myocardial infarction; E46 Unspecified protein-calorie malnutrition; D69.6 Thrombocytopenia, unspecified; B02.9 Zoster without complications; J44.0 Chronic obstructive pulmonary disease with (acute) lower respiratory infection; E11.65 Type 2 diabetes mellitus with hyperglycemia; J44.1 Chronic obstructive pulmonary disease with (acute) exacerbation; Z68.1 Body mass index [BMI] 19.9 or less, adult; Z99.81 Dependence on supplemental oxygen; D64.9 Anemia, unspecified; F41.9 Anxiety disorder, unspecified; F32.9 Major depressive disorder, single episode, unspecified; M06.9 Rheumatoid arthritis, unspecified; K21.9 Gastro-esophageal reflux disease without esophagitis; Z79.4 Long term (current) use of insulin; Z87.891 Personal history of nicotine dependence; J20.9 Acute bronchitis, unspecified; Z98.51 Tubal ligation status; Z79.82 Long term (current) use of aspirin; Z79.52 Long term (current) use of systemic steroids
CPT/HCPCS: 36415; 36600; 71010; 71275; 80048; 80053; 80061; 80076; 82550; 82553; 82803; 82947; 83036; 83735; 84439; 84443; 84481; 84484; 85025; 85027; 85379; 87804; 93005; 94640; 94667; 94668; 94760; 94761; 96374; 96375; 97110; 97116; 97162; 97535; 99285; C9113; G8978-GP; G8979-GP; J1650; J1815; J1956; J2060; J2920; J2930; J3475; Q9967

== ENCOUNTER → 2017-03-05 | Outpatient (CLI) | payer OTHER ==
[~2017-03-05] MED LIST changes: +AMITRIPTYLINE H25 MG PO; +ASPIRIN EC81 M1 PO; +ATORVASTATIN CA10 MG PO; +CLOPIDOGREL75 MG PO; +COMBIVENT RESPIM4 GM INH; +COUGHTAB200 MG PO; +DOXYCYCLINE HY100 M3 PO; +FOLIC ACID1 MG PO; +FOSAMAX70 MG PO; +GABAPENTIN300 M2 PO; +HUMALOG100 U/ML SUBQ; +HYDROCODONE/APA1 T16 PO; +IRON325 ( 651 PO; +JANUVIA PO; +LANTUS SOLOSTAR3 ML SUBQ; +LEFLUNOMIDE10 MG PO; +NEXIUM PO; +PREDNISONE10 MG PO; +SERTRALINE HCL100 M1 PO; +TOPROL XL PO
--- NOTE | ~2017-03-05 | EKG ---
PATIENT: ARDEN LIAO UNIT #: [id number] Ventricular Rate: 82 BPM Atrial Rate: 82 BPM P-R Interval: 154 ms QRS Duration: 70 ms Q-T Interval: 380 ms QTC Calculation(Bezet): 443 ms P [place]: 77 degrees Calculated R [place]: 50 degrees Calculated T [place]: 51 degrees Diagnosis Line: Normal sinus rhythm Diagnosis Line: Normal ECG Diagnosis Line: When compared with ECG of 13-JAN-2017 07:23, Diagnosis Line: T wave inversion no longer evident in Inferior Diagnosis Line: leads Diagnosis Line: Confirmed by RIOS CORNEJO MD ([id number]) on Diagnosis Line: 03/06/2017 11:01:48 PM INTERPRETING MD: JULISSA
[2017-03-05 08:09] LABS: HEMATOCRIT 37.2 % (35.0-45.0); MEAN CORPUSCULAR HGB CONC 32.2 g/dL (30-36); RED BLOOD COUNT 4.6 X10e (3.90-5.30); RED CELL DISTRIBUTION WIDTH 16.8 % (11.0-15.5); WHITE BLOOD COUNT 10.1 X10e3 (4.0-10.5)
[2017-03-05 08:26] LABS: PARTIAL THROMBOPLASTIN TIME 22.9 SECONDS (23.5-31.3); PROTHROMBIN TIME (PATIENT) 10.5 SECONDS (9.6-11.5)
[2017-03-05 08:53] LABS: BUN/CREATININE RATIO 25.55; CALCIUM SERUM 8.8 mg/dL (8.4-10.2); CREATININE SERUM 0.9 mg/dL (0.6-1.4); GLOM FILT RATE Estimated 69.1 mL/min (>60)
== END | disposition home or self-care (01) ==
LOC: CCVL 07:35
PROVIDERS: Internal Medicine Cardiovascular Disease
PROC: 4A023N7 Measurement of Cardiac Sampling and Pressure, Left Heart, Percutaneous Approach (ICD-10-PCS; principal; 2017-03-05)
PROC: B211YZZ Fluoroscopy of Multiple Coronary Arteries using Other Contrast (ICD-10-PCS; 2017-03-05)
PROC: B215YZZ Fluoroscopy of Left Heart using Other Contrast (ICD-10-PCS; 2017-03-05)
DX: I25.118 Atherosclerotic heart disease of native coronary artery with other forms of angina pectoris (principal); R07.9 Chest pain, unspecified; Z82.49 Family history of ischemic heart disease and other diseases of the circulatory system; I10 Essential (primary) hypertension; E11.9 Type 2 diabetes mellitus without complications; Z79.4 Long term (current) use of insulin; K21.9 Gastro-esophageal reflux disease without esophagitis; J44.9 Chronic obstructive pulmonary disease, unspecified; E78.5 Hyperlipidemia, unspecified; M06.9 Rheumatoid arthritis, unspecified; Z79.52 Long term (current) use of systemic steroids; D64.9 Anemia, unspecified; D69.6 Thrombocytopenia, unspecified; Z79.82 Long term (current) use of aspirin; Z79.899 Other long term (current) drug therapy; Z87.891 Personal history of nicotine dependence; Z88.5 Allergy status to narcotic agent
CPT/HCPCS: 36415; 80048; 85027; 85610; 85730; 93005; C1769; C1887; C1894; J1644; J2250; J3010